=== PATIENT | female | born 2000 | race Caucasian/White ===

== ENCOUNTER 2024-08-30 08:35 | Day surgery (SDC) | payer OTHER, SELFPAY ==
--- OUTSIDE RECORDS SUMMARY | 2024-08-08 13:52 | XMS_ITS | Patient Health Record ---
Author Organization [facility] [place] Address [address] [facility] [address] [place] [address] Support Name Relationship Address Phone VERNA NAIK Guarantor Unknown [phone] Reason For Referral No Information Problems Problem Type SNOMED Code ICD Code Onset Dates Problem Status W/U Status Risk Notes Problem Closed Colles' fracture (378372736) Closed Colles' fracture (813.41) 08/01/2010 Active confirmed Isiah Problem Closed fracture of radius (327088138) Closed fracture of unspecified part of radius (alone) (813.81) 08/01/2010 Active confirmed Isiah Problem Fall (8898431) Unspecified fall (E888.9) 07/31/2010 Active confirmed Isiah Plan Of Treatment No Information
[2024-08-24 10:06] VITALS: BMI 32.4
--- NOTE | 2024-08-28 15:14 | P.CONAN_ITS ---
Documented by User: Sharita Polanco NP 08/29/24 12:03 HPI - Anesthesia Eval Consult details Narrative: Khris 23yo M (F to M transgender, no hormones) for Bilateral Medial Rectus Eye Muscle Recession Hx cleft palate COUNTS INCLUDE 234 BEDS AT THE [facility] Past Medical History Medical History Weight gain Transgender H/O prematurity Obese Learning disability MDD (major depressive disorder) STEPHANY (generalized anxiety disorder) Congenital scoliosis Cleft palate Social History Social History Patient Tobacco Use Status: Never used Tobacco Are you DNR?: No Advance Directives: No Advance Directives Information Provided: Yes Advance Directives on File: No Meds Allergies Allergy/AdvReac Type Severity Reaction Status Date / Time No Known Allergies Allergy Verified 08/30/24 10:08 Home Medications ?Medication ?Instructions ?Recorded ?Confirmed ?Last Taken ?Type mirtazapine 15 mg tablet 15 mg PO BEDTIME 08/24/24 08/30/24 Unknown History sertraline 50 mg tablet 50 mg PO DAILY 08/24/24 08/30/24 Unknown History Exam Height,Weight and Vital Signs: Height 4 ft 10.27 in Weight 71 kg Assessment and Plan Assessment Anesthesia Assessment: Chart Reviewed Documented by User: Jennifer Olivera MD 08/30/24 11:13 COUNTS INCLUDE 234 BEDS AT THE [facility] Past Medical History Medical History Weight gain Transgender H/O prematurity Obese Learning disability MDD (major depressive disorder) STEPHANY (generalized anxiety disorder) Congenital scoliosis Cleft palate Family History Family history of problems with anesthesia: No Surgical History History of Problems with Anesthesia: No Social History Social History Patient Tobacco Use Status: Never used Tobacco Are you DNR?: No Advance Directives: No Advance Directives Information Provided: Yes Advance Directives on File: No Meds Allergies Allergy/AdvReac Type Severity Reaction Status Date / Time No Known Allergies Allergy Verified 08/30/24 10:08 Home Medications ?Medication ?Instructions ?Recorded ?Confirmed ?Last Taken ?Type mirtazapine 15 mg tablet 15 mg PO BEDTIME 08/24/24 08/30/24 Unknown History sertraline 50 mg tablet 50 mg PO DAILY 08/24/24 08/30/24 Unknown History Exam Airway Mallampati Class: III TM Dist: >3cm Neck ROM: Full Heart: rrr Lungs: cta Assessment and Plan Assessment Anesthesia Assessment: Anesthesia Plan Discussed Final Anesthetic Review Family History of Problems with Anesthesia: No History of Problems with Anesthesia: No NPO: Yes ASA Class: II Final Preanesthetic Review: No Changes in Pt Med Stat and Meds/Allgs Chart Revie wed Patient Risk: Low Procedure Risk: Low Anesthetic Plan Anesthetic Plan: GA Disposition: Standard PACU
[2024-08-30] VITALS (7 sets, daily range): BP systolic 107–125; BP diastolic 59–72; PULSE 88–107; RESP 18; TEMP 36.3–36.9; O2SAT 95–99
[2024-08-30 10:24] LABS: UPreg QC Valid YES; Urine Pregnancy NEGATIVE (NEGATIVE)
[2024-08-30] MEDS: Lactated Ringers 1,000 ML 100 ML IVCONT (10:28)
--- NOTE | 2024-08-30 13:59 | HO.OPHTHAL ---
Ophthalmology Operative Note Date of Service: 08/30/24 Narrative: Diagnosis esotropia. Postoperative diagnosis same. Procedure bilateral medial rectus recessions of [address] Abbott. Anesthesia general. Complications none. The patient was brought to the operative room placed under general anesthesia. The eyes were prepped and draped in the usual sterile ophthalmic fashion. A lid speculum was placed in the right eye and incisions made at bare sclera in the inferonasal fornix. The medial rectus was hooked and secured with a double-armed Vicryl suture. It was disinserted from the globe and reattached to a position 5 mm behind the original insertion. Conjunctiva was closed with interrupted Vicryl sutures. An identical procedure was then performed on the left eye. The patient was then awoken from general anesthesia and discharged to postoperative recovery in good condition.
== END 2024-08-30 13:26 | disposition home or self-care (01) ==
PROVIDERS: Nurse Practitioner; PCP Family Medicine; Visit Provider Ophthalmology
PROC: (CPT 67311; principal; 2024-08-30 11:30)
DX: H53.2 Diplopia (principal); Q67.5 Congenital deformity of spine; Q35.9 Cleft palate, unspecified; F64.0 Transsexualism; F32.1 Major depressive disorder, single episode, moderate; F41.1 Generalized anxiety disorder; E66.811 Obesity, class 1; Z68.32 Body mass index [BMI] 32.0-32.9, adult; Z79.899 Other long term (current) drug therapy
CPT/HCPCS: 67311; 81025; J0461; J1100; J1596; J1885; J2003; J2250; J2405; J2704; J3010